=== PATIENT | male | born 1960 | race Caucasian/White ===

== ENCOUNTER → 2017-11-08 | Outpatient (CLI) | payer OTHER | LOC: GMAB 15:39 | PROVIDERS: ATTEND Family Medicine | DX: Z00.01 Encounter for general adult medical examination with abnormal findings (principal) ==

== ENCOUNTER → 2018-04-04 | Outpatient (CLI) | payer OTHER | LOC: GMAE 11:03 | PROVIDERS: ATTEND Family Medicine | DX: E29.1 Testicular hypofunction (principal) ==

== ENCOUNTER → 2018-07-06 | Outpatient (CLI) | payer OTHER | LOC: GMAE 10:53 | PROVIDERS: ATTEND Family Medicine | DX: E29.1 Testicular hypofunction (principal) ==

== ENCOUNTER → 2018-10-10 | Outpatient (CLI) | payer OTHER | LOC: GMAE 10:27 | PROVIDERS: ATTEND Family Medicine | DX: E29.1 Testicular hypofunction (principal) ==

== ENCOUNTER → 2018-11-30 | Outpatient (CLI) | payer OTHER | LOC: GMAE 10:55 | PROVIDERS: ATTEND Family Medicine | DX: E29.1 Testicular hypofunction (principal); E78.2 Mixed hyperlipidemia ==

== ENCOUNTER → 2018-12-06 | Outpatient (CLI) | payer OTHER | LOC: GMAE 17:02 | PROVIDERS: ATTEND Family Medicine | DX: E29.1 Testicular hypofunction (principal); R94.8 Abnormal results of function studies of other organs and systems ==

== ENCOUNTER → 2019-06-05 | Outpatient (CLI) | payer OTHER | LOC: GMAE 10:39 | PROVIDERS: ATTEND Family Medicine | DX: R94.8 Abnormal results of function studies of other organs and systems (principal); E29.1 Testicular hypofunction ==